=== PATIENT | female | born 1960 | race African-American/Black ===

== ENCOUNTER 2021-02-14 20:46 | Inpatient (IN) | payer MEDICARE, OTHER ==
[~2021-02-14] VITALS: Ht 165.1 cm; Wt 85.9 kg
--- NOTE | 2021-02-14 21:06 | NUR ---
Pt BIB [facility] with c/o palpitations that started at 1800. A/O x4, no SOB or labored breathing. Denies CP/pressure. No GI/ distress. Pt has Hx of AFib.
--- NOTE | 2021-02-14 21:15 | NUR ---
Dr. Burleson at bedside, MSE in progress.
--- NOTE | 2021-02-14 21:35 | NUR ---
Xray at bedside.
[2021-02-14 22:22] LABS: CREATININE 1.3 mg/dL (0.6-1.3)
[2021-02-14 22:48] LABS: NUCLEATED RED BLOOD CELLS 0.1 /100WBC
[2021-02-14 23:14] LABS: HEMATOCRIT 38.7 % (31.2-41.9); MEAN CORPUSCULAR VOLUME 79.9 fL (75.5-95.3)
[2021-02-14 23:15] LABS: MEAN CORPUSCULAR HEMOGLOBIN 25.1 uug (24.7-32.8); PLATELET COUNT (AUTO) 228 K/uL (179-408)
[2021-02-14 23:44] LABS: EOSINOPHILS % (MANUAL) 3 % (0-8); LYMPHOCYTES % (MANUAL) 58 % (20-40); MONOCYTES % (MANUAL) 4 % (2-10); NEUTROPHILS % (MANUAL) 35 % (42-75)
--- NOTE | 2021-02-14 23:45 | NUR ---
PT AMBULATED TO RESTROOM, DENIES ANY CP/PRESSURE, NO PALPITATIONS. DENIES ANY PAIN/DISCOMFORT AT THIS TIME.
[2021-02-14 23:46] LABS: BILIRUBIN,DIRECT 0.1 mg/dL (0.0-0.2); BILIRUBIN,TOTAL 0.2 mg/dL (0.2-1.0)
[2021-02-15] MEDS ORDERED: ACETAMINOPHEN 325 MG TABLET PO PRN (02:00)
[2021-02-15] MEDS ORDERED: Z GUARD REMEDY PASTE 57 GM TUBE TOP PRN (02:00)
[2021-02-15] MEDS ORDERED: MAGNESIUM HYDROXIDE 30 ML LIQUID UDC PO PRN (02:00)
[2021-02-15] MEDS ORDERED: ONDANSETRON 4 MG/2 ML VIAL IV PRN (02:00)
--- NOTE | 2021-02-15 02:30 | NUR ---
Patient is resting comfortably in bed with eyes closed. Vitals stable.
[2021-02-15] MEDS ORDERED: wellbutrin PO (02:43)
[2021-02-15] MEDS ORDERED: VERA240C2 PO (02:43)
[2021-02-15] MEDS ORDERED: DIGO250T PO (02:43)
[2021-02-15] MEDS ORDERED: ATOR80TA PO (02:43)
[2021-02-15] MEDS ORDERED: ALBU6.7H9 IH (02:43)
[2021-02-15] MEDS ORDERED: ASPI81TA31 PO (02:43)
[2021-02-15] MEDS ORDERED: HYDR25TA4 PO (02:43)
[2021-02-15 05:35] LABS: HEMATOCRIT 38.7 % (31.2-41.9); MEAN CORPUSCULAR HEMOGLOBIN 25.2 uug (24.7-32.8); MEAN CORPUSCULAR VOLUME 81.1 fL (75.5-95.3); PLATELET COUNT (AUTO) 212 K/uL (179-408)
--- NOTE | 2021-02-15 05:42 | NUR ---
Pt noted to be resting, breathing even and unlabored. Vitals stable. Bed in lowest position for safety precautions.
[2021-02-15 05:44] LABS: CREATININE 1.4 mg/dL (0.6-1.3); MAGNESIUM 1.6 mg/dL (1.8-2.4); PHOSPHOROUS 4.4 mg/dL (2.5-4.9); POTASSIUM 4.1 mmol/L (3.5-5.1)
--- NOTE | 2021-02-15 07:09 | NUR ---
Gave report to ASHOK Bagley. Pt resting in bed, vitals stable. Breathing even and unlabored.
[2021-02-15] MEDS ORDERED: ASPIRIN 325 MG TABLET PO SCH (09:00)
--- NOTE | 2021-02-15 11:38 | NUR ---
Patient assisted to restroom at this time, no signa sof acute distress noted
[2021-02-15] MEDS: MAGNESIUM OXIDE 400 MG TABLET PO SCH ×3 (12:43→21:57)
--- NOTE | 2021-02-15 15:37 | NUR ---
Awaiting room availability on tele unit, no signs of distress noted, vitals are WNL
[2021-02-15] MEDS ORDERED: ALBUTEROL SULFATE 8 GM HFA.AER.AD IH PRN (16:00)
[2021-02-15] MEDS ORDERED: ALBUTEROL SULFATE 2.5 MG/3 ML NEBU NEB PRN (16:30)
[2021-02-15] MEDS ORDERED: ASPI-869 PO (16:56)
[2021-02-15] MEDS ORDERED: BUPR100T5 PO (16:56)
[2021-02-15] MEDS ORDERED: DIGO125T PO (17:04)
[2021-02-15] MEDS ORDERED: MAGNESIUM OXIDE 400 MG TABLET ONE (18:00)
--- NOTE | 2021-02-15 18:20 | NUR ---
Patient noted eating dinner at this time, no signs of acute distress noted, vitals within normal limits
--- NOTE | 2021-02-15 19:55 | NUR ---
Dr. Cuenca early intervention school psychologist at bedside, to eval/interview patient.
--- NOTE | 2021-02-15 20:32 | NUR ---
Gave report to Levi PULIDO, tele bed 310.
--- NOTE | 2021-02-15 21:10 | NUR ---
Pt. admitted to tele , under care of Dr. Villanueva Dx: NSTEMI Belongs List completed
--- NOTE | 2021-02-15 21:40 | NUR ---
RECEIVED PT FROM ER VIA [facility]. DX:NSTEMI. PT IN NO ACUTE DISTRESS.BELONGING LIST DONE. [facility]OUS[facility] RELOC[facility] SAW THE PT. ADMISSION PROCESS AND CARE PLAN INITIATED. NURSING ASSESSMENT DONE. PT ON ROOM AIR. SAFETY AND COMFORT PROVIDED. WILL ENDORSE TO INCOMING NURSE FOR CONTINUITY OF CARE.
[2021-02-15] MEDS: ATORVASTATIN 40 MG TABLET PO SCH (21:57)
[2021-02-15 22:00] VITALS: BP 127/80
[2021-02-16 00:09] VITALS: BP 136/73
[2021-02-16] MEDS: MAGNESIUM OXIDE 400 MG TABLET PO SCH (00:09)
[2021-02-16 04:12] VITALS: BP 150/89
--- NOTE | 2021-02-16 06:08 | NUR ---
PT SLEPT COMFORTABABLY. PT IN NO ACUTE DISTRESS. PRESCRIBED MEDICATION GIVEN AND PT TOLERATED IT WELL. IV INTACT. SAFETY AND COMFORT PROVIDED.ALL NEEDS ARE MET. PT STABLE. PT ON ROOM AIR. WILL ENDORSE TO INCOMING NURSE FOR CONTINUITY OF CARE.
--- NOTE | 2021-02-16 07:30 | NUR ---
RECEIVED PATIENT IN BED ASLEEP ON ROOM AIR LOOOKS VERY COMFORTABLE SO DID NOT WAKE HER UP TELE IS SR AT THIS TIME PATIENT IS SCHEDULED FOR [facility] CORONARY AT [place] P/U ABOUT 1130 CALL LIGHTS AND PERSONAL BELONGINGS ARE WITHIN EASY REACH AT THIS TIME WILL CONTINUE TO OBSERVE.
[2021-02-16 07:32] LABS: CREATININE 1.1 mg/dL (0.6-1.3); DIGOXIN 0.2 ng/mL (0.9-2.0); POTASSIUM 4.1 mmol/L (3.5-5.1)
[2021-02-16] MEDS ORDERED: ASPIRIN 81 MG TAB.CHEW PO SCH (09:00)
[2021-02-16] MEDS ORDERED: DIGOXIN 250 MCG TABLET PO SCH (09:00)
[2021-02-16] MEDS: HYDROCHLOROTHIAZIDE 25 MG TABLET PO SCH (09:48)
[2021-02-16] MEDS: VERAPAMIL SR 120 MG TABLET.SA PO SCH (09:48)
[2021-02-16] MEDS: ASPIRIN EC 325 MG TABLET.DR PO SCH (09:48)
--- NOTE | 2021-02-16 10:12 | NUR ---
CALLED AND SPOKE WITH OC FROM [facility] RE IF ITS OKAY FOR PATIENT TO TAKE HER MEDICATIONS ORDERED AND HE STATED YES BUT NOT ANY MEDS THAT WILL RAISE HIS HEART RATE PATIENT IS ON VERAPAMIL AND HYDROCHLOROTHIAZIDE AND HE STATED OKAY TO GIVE GIVEN ORDERED
--- NOTE | 2021-02-16 11:45 | NUR ---
PATIENT PICKED UP BY THE [facility] BLOOD PRESSURE AT THIS TIME IS 146/96 SHE IS ALERT AND ORIENTED DENIES CHEST PAIN AT THIS TIME.
[2021-02-16 12:00] VITALS: BP 145/97
--- NOTE | 2021-02-16 13:20 | NUR ---
PATIENT RETURNED FROM [facility] FOR THE CTA CORONARY ORDERED AWAKE ALERT AND ORIENTED DENIES DISCOMFORTS BLOOD PRESSURE AT THIS TIME IS 132/88 NOT IN DISTRESS AT THIS TIME.
[2021-02-16] MEDS: DIGOXIN 125 MCG TABLET PO SCH (13:57)
[2021-02-16 15:48] VITALS: BP 120/72
--- NOTE | 2021-02-16 18:00 | NUR ---
PATIENT IS RESTING IN BED DENIES CHEST PAIN NOT IN DISTRESS NO C/O AT THIS TIME.
[2021-02-16 20:00] VITALS: BP 130/81
--- NOTE | 2021-02-16 20:00 | NUR ---
RECEIVED PATIENT AWAKE IN BED. A/O X4. DENIES ANY CHEST PAIN. DENIES ANY OTHER PAIN OR DISCOMFORT. NO RESP. DISTRESS NOTED. ON TELE SR. CALL LIGHT IN REACH. ALL NEEDS ATTENDED. WILL CONTINUE TO MONITOR AND ASSESS.
[2021-02-16] MEDS: ATORVASTATIN 40 MG TABLET PO SCH (20:55)
[2021-02-17] VITALS: BP 142/78
[2021-02-17] MEDS: BENZONATATE 100 MG CAPSULE PO SCH ×3 (03:52→13:10)
[2021-02-17 04:00] VITALS: BP 112/72
--- NOTE | 2021-02-17 06:10 | NUR ---
PATIENT ASLEEP IN BED. SLEPT AT INTERVALS THROUGHOUT THE NIGHT. VS WNL. ON TELE SR. CALL LIGHT IN REACH. ALL NEEDS ATTENDED. WILL CONTINUE TO MONITOR AND ASSESS.
--- NOTE | 2021-02-17 07:20 | NUR ---
PATIENT RECEIVED ASLEEP BUT EASILY AROUSABLE ON ROUNDS DENIES CHEST PAIN OR ANY DISCOMFORTS AT THIS TIME ON ROOM AIR WITH NO SHORTNESS OF BREATH CALL LIGHTS AND PERSONAL BELONGINGS ARE WITHIN EASY REACH TELE MONITORING IS SR NOT IN DISTRESS AT THIS TIME WILL CONTINUE TO OBSERVE.
[2021-02-17] MEDS: VERAPAMIL SR 120 MG TABLET.SA PO SCH (08:23)
[2021-02-17] MEDS: ASPIRIN EC 325 MG TABLET.DR PO SCH (08:23)
[2021-02-17] MEDS: DIGOXIN 125 MCG TABLET PO SCH (08:23)
[2021-02-17] MEDS: HYDROCHLOROTHIAZIDE 25 MG TABLET PO SCH (08:24)
[2021-02-17 11:31] VITALS: BP 135/74
--- NOTE | 2021-02-17 13:26 | NUR ---
PATIENT SEEN AND EXAMINED BY LEONIE SIMONS WITH ORDER TO DISCHARGE HOME TODAY SPOKE WITH PATIENT STATED THAT HER COUSIN WILL BE ABLE PICK HER UP THIS AFTERNOON AWAITING FOR THE PROVIDER TO COMPLETE THE DISCHARGE PROCESS.
[2021-02-17] MEDS ORDERED: BENZ-13 PO (13:34)
[2021-02-17 15:34] VITALS: BP 126/78
--- NOTE | 2021-02-17 17:00 | NUR ---
PATIENT DISCHARGED PICKED UP BY HER COUSIN IN SATISFACTORY CONDITION WITH DISCHARGE INSTRUCTIONS AND PATIENT INSTRUCTED THAT HER PRESCRIPTION WAS SENT ELECTRONICALLY TO HER PERSONAL PHARMACY. INSTRUCTED TO CALL HER PRIMARY DOCTOR FOR A FOLLOW UP APPOINTMENT FOR REFERRAL TO HER PATTERN MOLDER AND SHE EXPRESSED UNDERSTAND.DISCHARGED WITH ALL HER PERSONAL BELONGINGS.
[2021-02-17 20:00] VITALS: BP 127/74
== END 2021-02-17 17:00 | disposition home or self-care (01) | DRG 280 ==
LOC: ER 20:50 → TRANSITION 02-15 08:58 → TELE3 02-15 20:34
PROVIDERS: ADMIT Nurse Practitioner Acute Care; ATTEND Nurse Practitioner Family
DX: I21.A1 Myocardial infarction type 2 (principal); N17.0 Acute kidney failure with tubular necrosis; I20.0 Unstable angina; Z86.16 Personal history of COVID-19; I10 Essential (primary) hypertension; E78.5 Hyperlipidemia, unspecified; I48.0 Paroxysmal atrial fibrillation; J45.909 Unspecified asthma, uncomplicated; Z79.82 Long term (current) use of aspirin; Z79.899 Other long term (current) drug therapy; Z20.822 Contact with and (suspected) exposure to COVID-19
CPT/HCPCS: 36415; 70030-TC; 71045; 83735; 84100; 84443; 85025; 85730; 93005; 93307; A4663; G0378; J7030